=== PATIENT | female | born 1960 | race Caucasian/White ===

== ENCOUNTER 2024-08-08 07:18 | Emergency (ER) | payer OTHER, SELFPAY ==
[2024-08-08 07:20] VITALS: BP 144/78
[2024-08-08 08:07] VITALS: BMI 21.3
[2024-08-08 08:12] VITALS: BP 124/72
--- NOTE | 2024-08-08 08:13 | ED.GENMED ---
History of Present Illness
<Nehemiah Nunez MD, Resident - Last Filed: 08/08/24 10:44>
General
Chief Complaint: Head Injury
Source: patient and family
Time Seen by Provider: 08/08/24 07:26
Travel History
Have you traveled to any high risk areas for coronavirus over the past 14 days?: No
Have you had any contact with someone who has COVID-19?: No
Do you have any symptoms of coronavirus? Fever > 100 degrees, chills, cough, shortness of breath, sore throat, loss of taste or smell, muscle aches, or headache?: No
History of Present Illness
History of Present Illness:
64-year-old female hit her head against the railing of her bed while playing tug-of-war with her dog last night. Denies loss of consciousness. She has a headache since then, which has progressively gotten worse. She was not able to sleep well due to
pain despite of taking acetaminophen, and feels fatigued and tired. Has nausea but no vomiting. Denies blurry vision, balancing difficulties, dizziness, lightheadedness, photophobia or hyperacusis. She is not on anticoagulation.
Past History
<Nehemiah Nunez MD, Resident - Last Filed: 08/08/24 10:44>
Past History
ED Past Medical History: GERD (stomach ulcers) and Hypercholesterolemia
ED Past Surgical History: Orthopedic (back fusion L5-S1 -2014; nerve ablation * 2)
Social History
Tobacco: Non-smoker
Alcohol: Occasional
Drug: None
Personal:
Living: with family
Review of Systems
<Nehemiah Nunez MD, Resident - Last Filed: 08/08/24 10:44>
Review of Systems
All Other Systems: Not applicable
Constitutional: Reports fatigue
EENT: Reports no symptoms
Respiratory: Reports no symptoms
Cardiac: Reports no symptoms
ABD/GI: Reports no symptoms
: Reports no symptoms
Musculoskeletal: Reports no symptoms
Skin: Reports no symptoms
Neurological: Reports headache
Endocrine: Reports no symptoms
Hematologic/Lymphatic: Reports no symptoms
Psychiatric: Reports no symptoms
Phy Exam
<Nehemiah Nunez MD, Resident - Last Filed: 08/08/24 10:44>
General Physical Exam
General Presentation: well appearing and no apparent distress
General Skin: warm and dry
General Habitus: normal
General Mental: alert
General Hydration: appears well hydrated
ENT Exam
ENT Exam: EOMI, pharynx normal, neck supple and normocephalic
Eye Exam
Eye Exam: PERRL, cornea clear and conjunctiva normal
Cardiovascular Exam
Cardiovascular Exam: regular rate/rhythm, no edema, no murmur and normal peripheral pulses
Pulmonary Exam
Pulmonary Exam: lungs clear, no respiratory distress, no rales, no crackles, no rhonchi, no stridor, no wheezing and no cough
Gastrointestinal Exam
Gastrointestinal Exam: normal bowel sounds, non tender, soft, no organomegaly, no pulsatile mass and non distended
Neurological Exam
Neurological Exam: alert, oriented x3, no motor deficits and speech normal
Musculoskeletal Exam
Musculoskeletal Exam: full ROM, no edema and other (focal tenderness and erythema on the back of her head)
Skin Exam
Skin Exam: normal color, warm/dry, no rash and no petechia
Psychiatric Exam
Psychiatric Exam: normal mood/affect
Course
<Nehemiah Nunez MD, Resident - Last Filed: 08/08/24 10:44>
Orders/Labs/Results
Orders:
Orders
08/08/24 08:10
CT Head W/o Iv Contrast Urgent
Comment:
Reason For Exam: head trauma; headache
08/08/24 08:16
Ondansetron Orally Disint [Zofran Odt (Orally Disintegrating)] 4 mg PO NOW STA
08/08/24 08:27
CT Cervical Spine W/o Iv Contr Urgent
Comment:
Reason For Exam: trauma
08/08/24 10:09
Acetaminophen [Tylenol] 650 mg PO NOW STA
Ibuprofen [Motrin] 600 mg PO NOW STA
Vital Signs
Initial and Last Documented VS:
Initial Vital Signs
Temp Pulse Resp BP Pulse Ox
98.1 F 95 16 144/78 98
08/08/24 07:20 08/08/24 07:20 08/08/24 07:20 08/08/24 07:20 08/08/24 07:20
Last Documented Vital Signs
Temp Pulse Resp BP Pulse Ox
98.1 F 74 16 118/66 97
08/08/24 07:20 08/08/24 10:24 08/08/24 10:24 08/08/24 10:24 08/08/24 10:24
<Senia Jauregui MD - Last Filed: 08/08/24 08:28>
Orders/Labs/Results
Orders:
Orders
08/08/24 08:10
CT Head W/o Iv Contrast Urgent
Comment:
Reason For Exam: head trauma; headache
08/08/24 08:16
Ondansetron Orally Disint [Zofran Odt (Orally Disintegrating)] 4 mg PO NOW STA
08/08/24 08:27
CT Cervical Spine W/o Iv Contr Urgent
Comment:
Reason For Exam: trauma
08/08/24 10:09
Acetaminophen [Tylenol] 650 mg PO NOW STA
Ibuprofen [Motrin] 600 mg PO NOW STA
Vital Signs
Initial and Last Documented VS:
Initial Vital Signs
Temp Pulse Resp BP Pulse Ox
98.1 F 95 16 144/78 98
08/08/24 07:20 08/08/24 07:20 08/08/24 07:20 08/08/24 07:20 08/08/24 07:20
Last Documented Vital Signs
Temp Pulse Resp BP Pulse Ox
98.1 F 74 16 118/66 97
08/08/24 07:20 08/08/24 10:24 08/08/24 10:24 08/08/24 10:24 08/08/24 10:24
<Nehemiah Nunez MD, Resident - Last Filed: 08/08/24 10:44>
*Critical Care Note
Total Time (30-74mins, 75-104mins- exclusive of procedures): Not Applicable
<Nehemiah Nunez MD, Resident - Last Filed: 08/08/24 10:44>
Update Note
Update Note:
CT head and cervical spine did not note any acute changes. Patient feels better after taking ondansetron and acetaminophen. Discussed rest, ice application and acetaminophen for pain control. History of gastric ulcers; avoid NSAIDs.
ED Attending Note
<Nehemiah Nunez MD, Resident - Last Filed: 08/08/24 10:44>
-
Portions of this chart may have been created with voice recognition software.� Occasional wrong word or��sound alike� substitutions may have occurred due to the inherent limitations of voice recognition software.
<Senia Jauregui MD - Last Filed: 08/08/24 08:28>
ED Attending Note
Patient seen and examined by attending physician: Yes
I performed a history and physical exam of patient and discussed management with resident, I reviewed resident's note and agree with documented findings and plan of care.: Yes
ED Attending Note:
Patient appears nontoxic. Patient describes nausea and headache. She has not had any vomiting. On exam, patient is alert and oriented x 3 and conversational. Neurological exam is intact and normal. Patient does have mild C2 area tenderness,
thus we will do a CT head and C-spine. Patient denies chest pain and back pain.
Discharge Plan
Departure
Patient Disposition: Home (Routine Discharge)
Date of Disposition: 08/08/24
Time of Disposition: 10:23
Patient with high blood pressure during this ER visit?: No
Condition: Good
Discharge Problem:
Blunt head trauma
Instructions: Minor Head Injury (DC)
Prescriptions:
No Action
diazepam 5 mg tablet
5 mg PO TID PRN (Reason: muscle spasm) Qty: 12 0RF
diclofenac sodium 75 mg tablet,delayed release (DR/EC)
75 mg PO BID PRN (Reason: Pain) Qty: 14 0RF
Referrals:
UNKNOWN - PT DOES,NOT KNOW [Family Provider] -
Stand Alone Forms: Return to Work
Activity Restrictions/Additional Instructions:
Rest for the next 3-5 days. Apply ice to the injured area. Take acetaminophen 650 mg every 6-8 hours as needed.
Interventions
Interventions:
*Risk Screen - Suicide Last Done: 08/08/24 07:20
*General Assessment Last Done: 08/08/24 08:07
*Neglect/Abuse Screening Last Done: 08/08/24 07:20
ED- Fall Risk Assessment Last Done: 08/08/24 08:07
*ED COVID-19 Vaccine History Last Done: 08/08/24 08:07
ED- Neurological Assessment Last Done: 08/08/24 08:07
ED-Skin Assessment Last Done: 08/08/24 08:07
Discharge Date and Time
Print Language: TAIWANESE
[2024-08-08] MEDS: ZOFRAN ODT (ORALLY DISINTEGRATING) 4 MG PO (08:46)
[2024-08-08] MEDS: TYLENOL 650 MG PO (10:21)
[2024-08-08 10:24] VITALS: BP 118/66
--- NOTE | 2024-08-08 10:42 | EDRN ---
Reviewed discharge instructions with patient. Verbalized understanding. Ambulated with steady gait to the lobby.
[2024-08-08 10:44] VITALS: BP 118/66
== END 2024-08-08 10:40 | disposition home or self-care (01) ==
LOC: EMR 07:18
PROVIDERS: EMERGENCY PHYSICIAN Emergency Medicine
DX: S09.90XA Unspecified injury of head, initial encounter (principal); W22.03XA Walked into furniture, initial encounter
CPT/HCPCS: 99284; 70450; 72125

== ENCOUNTER 2024-08-24 10:19 | Emergency (ER) | payer OTHER, SELFPAY ==
[2024-08-24 10:26] VITALS: BP 114/73
--- NOTE | 2024-08-24 10:29 | ED.MUSCINJ ---
HPI-Injury
<Iván Rivers PA-C - Last Filed: 08/24/24 10:30>
General
Chief Complaint: Fall
Time Seen by Provider: 08/24/24 11:08
<Gloria King NP - Last Filed: 08/24/24 16:04>
General
Source: patient
Exam Limitations: none
Nursing documentation reviewed up to this point in time: agreed with
History of Present Illness-Injury
Initial Injury comments:
64-year-old female who presents with right hip area and low back pain, 'soreness' right foot, knee, left elbow, right hand after a fall at 4 PM yesterday when she while adjusting a corn stock on her porch, falling onto her right side. She denies
hitting her head. Stumbled she denies head injury, chest pain or trouble breathing. Denies abdominal pain. She states 'I hurt from my down to my foot' on the left side. She has been able to get up but states she has had to use her walker due to
pain in the right hip area.
She took Tylenol, ibuprofen and Valium 2 mg prior to coming here.
She is being treated for concussion by her PCP and requests something for her nausea
ED Provider Triage
<Iván Rivers PA-C - Last Filed: 08/24/24 10:30>
-
Patient seen by provider in Triage?: Seen in Triage
64-year-old female presents after a fall she sustained yesterday. She fell on the right side. She complains of lower back right hip and thigh pain. She was here 2 weeks ago after fall hitting her head. CT of the head and cervical spine were
performed then which were negative. She did not hit her head this time.
She has been using a walker to ambulate but has difficulty lifting her leg. X-rays lumbar spine pelvis and femur were ordered. Recommended further evaluation
Past History
<Iván Rivers PA-C - Last Filed: 08/24/24 10:30>
Past History
ED Past Medical History: GERD (stomach ulcers) and Hypercholesterolemia
ED Past Surgical History: Orthopedic (back fusion L5-S1 -2014; nerve ablation * 2)
Social History
Tobacco: Non-smoker
Alcohol: Occasional
Drug: None
Personal:
Living: with family
Review of Systems
<Gloria King SHEET PILE DRIVER OPERATOR - Last Filed: 08/24/24 16:04>
Review of Systems
Allergies reviewed?: Yes
All Other Systems: ROS reviewed and negative except as documented in HPI and ROS
Respiratory: Denies trouble breathing
Cardiac: Denies chest pain
ABD/GI: Reports nausea (since dx with concussion 08/08); Denies abdominal pain or vomiting
Musculoskeletal: Reports muscle pain (right hand thenar eminence with mild tenderness and swelling, ecchymosis) and other (pain right hip area, no back pain but would like and xray 'just to check' on her surgical site); Denies neck pain
Neurological: Reports no symptoms; Denies headache, weakness or numbness
Phy Exam
<Gloria King SHEET [employer]LE [employer]IVER OPERATOR - Last Filed: 08/24/24 16:04>
Physical Exam
Physical Exam:
GENERAL: No acute distress. A&Ox3.
CONSTITUTIONAL: Afebrile.
EYES: clear, conjunctivae normal
Neck: Supple
ENMT: moist mucus membranes, Pharynx nl
RESPIRATORY: Regular respirations, nonlabored, lungs clear.
CARDIOVASCULAR: Regular rate and rhythm, no murmurs, no rubs.
GI: Soft, nontender, normal BS
MUSCULOSKELETAL: No spinal bony tenderness. Tender about the right hip and right knee. Tender lateral right buttock. No bony tenderness from right toes up to hip. Can SLR both legs with pain about the right hip/buttock with both R & L SLR. Neg
pelvic rock. No bony tenderness right hand or wrist, full ROM. Well perfused.
SKIN: Warm, dry, pink. Two small bruises left knee, mild swelling and ecchymosis right thenar eminence
PSYCH: Normal mood and affect. Well kept, interactive and appropriate
NEUROLOGIC: Awake, alert and oriented. No focal neurological deficits
Injury Course
<Iván Rivers PA-C - Last Filed: 08/24/24 10:30>
Orders/Labs/Results
Orders:
Orders
08/24/24 10:26
CR Lumbar Spine 2 Or 3 Views Urgent
Comment:
Reason For Exam: fall
08/24/24 11:22
Hip, Right 2-3 Views [CR Hip - RT w/wo Pel 2-3 Vw*] Urgent
Comment:
Reason For Exam: pain after fall
Include a pelvis x-ray?: Yes
08/24/24 11:23
Ondansetron Orally Disint [Zofran Odt (Orally Disintegrating)] 4 mg PO NOW STA
08/24/24 12:44
Acetaminophen [Tylenol] 1,000 mg PO NOW STA
<Gloria King NP - Last Filed: 08/24/24 16:04>
Orders/Labs/Results
Orders:
Orders
08/24/24 10:26
CR Lumbar Spine 2 Or 3 Views Urgent
Comment:
Reason For Exam: fall
08/24/24 11:22
Hip, Right 2-3 Views [CR Hip - RT w/wo Pel 2-3 Vw*] Urgent
Comment:
Reason For Exam: pain after fall
Include a pelvis x-ray?: Yes
08/24/24 11:23
Ondansetron Orally Disint [Zofran Odt (Orally Disintegrating)] 4 mg PO NOW STA
08/24/24 12:44
Acetaminophen [Tylenol] 1,000 mg PO NOW STA
<Gloria King SHEET PILE DRIVER OPERATOR - Last Filed: 08/24/24 16:04>
MDM/Problems Addressed
Differential Diagnosis Includes:
Contusions, sprains, fracture right hip
MDM/Problems Addressed:
64-year-old female who presents with right hip area and low back pain, 'soreness' right foot, knee, left elbow, right hand after a fall at 4 PM yesterday when she while adjusting a corn stock on her porch, falling onto her right side. She denies
hitting her head. Stumbled she denies head injury, chest pain or trouble breathing. Denies abdominal pain. She states 'I hurt from my down to my foot' on the left side. She has been able to get up but states she has had to use her walker due to
pain in the right hip area.
She took Tylenol, ibuprofen and Valium 2 mg prior to coming here.
She is being treated for concussion by her PCP and requests something for her nausea
No bony tenderness of right hand or wrist, full ROM, no indication for imaging.
Right hip and pelvic x-rays are negative for fracture
Lumbar spine x-ray shows nothing acute.
At discharge, pt ambulated out with mild limp (has contusion buttock)
<Gloria King, SHEET PILE DRIVER OPERATOR - Last Filed: 08/24/24 16:04>
*Critical Care Note
Total Time (30-74mins, 75-104mins- exclusive of procedures): Not Applicable
ED Attending Note
<Iván Rivers PA-C - Last Filed: 08/24/24 10:30>
-
Portions of this chart may have been created with voice recognition software.� Occasional wrong word or��sound alike� substitutions may have occurred due to the inherent limitations of voice recognition software.
Discharge Plan
Departure
Patient Disposition: Home (Routine Discharge)
Date of Disposition: 08/24/24
Time of Disposition: 12:16
Patient with high blood pressure during this ER visit?: No
Condition: Good
Discharge Problem:
Fall from slip, trip, or stumble, Soft tissue injury of right hip, Contusion of right hand, Contusion of right knee
Instructions: Low back pain in adults, Contusion (DC), Sprained Thumb, Hip Pain ED
Prescriptions:
No Action
diazepam 5 mg tablet
5 mg PO TID PRN (Reason: muscle spasm) Qty: 12 0RF
diclofenac sodium 75 mg tablet,delayed release (DR/EC)
75 mg PO BID PRN (Reason: Pain) Qty: 14 0RF
Referrals:
Shweta Beck MD [Family Provider] - As needed
Stand Alone Forms: Return to Work
Activity Restrictions/Additional Instructions:
As we discussed, your xrays show nothing worrisome.
Ibuprofen 600 mg (with food) every 6 hours as needed for pain.
Interventions
Interventions:
*Risk Screen - Suicide Last Done: 08/24/24 10:26
*General Assessment Last Done: 08/24/24 10:26
*Neglect/Abuse Screening Last Done: 08/24/24 10:26
*Nursing Disposition Last Done: 08/24/24 12:52
ED-Musculoskeletal Assessment Last Done: 08/24/24 11:55
ED- Neurological Assessment Last Done: 08/24/24 11:55
ED-Skin Assessment Last Done: 08/24/24 11:55
Discharge Date and Time
Discharge Date/Time: 08/24/24 12:52
Print Language: GREEK
[2024-08-24] MEDS: ZOFRAN ODT (ORALLY DISINTEGRATING) 4 MG PO (11:28)
[2024-08-24] MEDS: TYLENOL 1000 MG PO (12:48)
== END 2024-08-24 12:52 | disposition home or self-care (01) ==
LOC: EMR 10:19
PROVIDERS: EMERGENCY PHYSICIAN Student in an Organized Health Care Education/Training Program; FAMILY PHYSICIAN Family Medicine
DX: S79.811A Other specified injuries of right hip, initial encounter (principal); S60.221A Contusion of right hand, initial encounter; S80.01XA Contusion of right knee, initial encounter; W01.0XXA Fall on same level from slipping, tripping and stumbling without subsequent striking against object, initial encounter; E78.00 Pure hypercholesterolemia, unspecified; K21.9 Gastro-esophageal reflux disease without esophagitis
CPT/HCPCS: 99284; 96374; 72100; 73502